=== PATIENT | male | born 1970 | race American Indian/Alaskan Native ===

== ENCOUNTER 2021-01-11 19:54 | Emergency (ER) | payer SELFPAY ==
[2021-01-11 21:21] VITALS: BP 145/78
--- NOTE | 2021-01-11 21:40 | XRay Report ---
CHEST 1 VIEW 01/11/2021 9:33 PM INDICATION / CLINICAL INFORMATION: sob. COMPARISON: None available. FINDINGS: SUPPORT DEVICES: None. HEART / MEDIASTINUM: No significant abnormality. LUNGS / PLEURA: No focal consolidation. Several small nodular densities are seen in bilateral lungs. No pneumothorax. ADDITIONAL FINDINGS: No significant additional findings. IMPRESSION: 1. There is no focal consolidation however there are small nodular densities in bilateral lungs. An a typical infection versus granulomatous disease. Follow-up recommended. Signer Name: Khai Salas MD Signed: 01/11/2021 9:36 PM Workstation Name: [id number]
[2021-01-11] MEDS ORDERED: cefTRIAXone/NS 1 GM/50 ML 1 GM/50 ML BAG IV ONE (22:00)
[2021-01-11] MEDS ORDERED: AZITHROMYCIN/NS 500 MG/250 ML 500 MG/250 ML BAG IV ONE (22:02)
[2021-01-11] MEDS ORDERED: SODIUM CHLORIDE 0.9% 1000 ML 1,000 ML IV ONE (22:02)
[2021-01-11] MEDS ORDERED: LIDOCAINE-MPF (1%) 10 MG/1 ML VIAL 5 ML INFILTRATI ONE (22:02)
--- NOTE | 2021-01-11 22:07 | Emergency Department Report ---
ED General Adult HPI - General Chief complaint: Dyspnea/Respdistress Stated complaint: +COVID/SOB Time Seen by Provider: 01/11/21 21:49 Source: patient Mode of arrival: Ambulatory Limitations: No Limitations - History of Present Illness Initial comments: 51-year-old male patient presents to the emergency department with complaints of chills, vomiting, diarrhea, shortness of breath, and chest pain for 4 days. Patient tested positive for COVID-19 today. Patient estimates he has experienced approximately 6 episodes of nonbloody diarrhea in the last 24 hours. No medications prior to arrival. Denies fever, wheezing, hemoptysis, abdominal pain, syncope, dizziness, palpitations. Denies all other complaints at this time. - Related Data Previous Rx's Medication Instructions Recorded Last Taken Type Azithromycin [Zithromax] 250 mg PO DAILY #5 tablet 01/12/21 Unknown Rx Allergies Allergy/AdvReac Type Severity Reaction Status Date / Time acetaminophen [From Percocet] Allergy Itching Verified 01/11/21 21:21 nut - unspecified Allergy Shortness Verified 01/11/21 21:21 of Breath oxycodone [From Percocet] Allergy Itching Verified 01/11/21 21:21 ED Review of Systems ROS: Stated complaint: +COVID/SOB Other details as noted in HPI Other: GENERAL: Positive for chills. ENT: Negative for ear pain, difficulty hearing, sore throat, nasal congestion, epistaxis. CARDIOVASCULAR: Positive for chest pain. PULMONARY: Positive for cough and shortness of breath. GASTROINTESTINAL: Positive for vomiting and diarrhea. MUSCULOSKELETAL: Negative for joint pain, joint swelling, myalgias, back pain, neck pain. NEUROLOGICAL: Negative for headache, seizure, syncope, paresthesias, weakness. INTEGUMENTARY: Negative for erythema, rash, diaphoresis, laceration, ecchymosis. HEMATOLOGICAL: Negative for hemoptysis, hematemesis, hematochezia, hematuria. PSYCHIATRIC: Negative for hallucinations, suicidal ideation, homicidal ideation, anxiety, depression. ED Past Medical Hx - Past Medical History Previous Medical History?: No - Surgical History Past Surgical History?: Yes Additional Surgical History: foor surgery right foot - Social History Smoking Status: Never Smoker Substance Use Type: None - Medications Home Medications: Home Medications Medication Instructions Recorded Confirmed Last Taken Type Azithromycin [Zithromax] 250 mg PO DAILY #5 tablet 01/12/21 Unknown Rx ED Physical Exam - General Limitations: No Limitations - Other Other exam information: General: Awake and alert. No acute distress. Head: Atraumatic, normocephalic. Eyes: EOMI. Pupils are equal and round. Normal sclera and conjunctiva. ENT: Oral mucosa is moist. Normal pharyngeal exam. Neck: Supple. No lymphadenopathy. Pulmonary: Conversational dyspnea noted however patient is able to speak in complete sentences. Clear to auscultation bilaterally. Cardiac: Tachycardic. Pulses are palpable and equal bilaterally. No lower extremity cyanosis or edema. Skin: Warm and dry. No rashes. Abdomen: Soft, non-tender, non-protuberant. No guarding, rigidity, or rebound. Bowel sounds are normal. No organomegaly or masses noted. Back: Normal alignment. No CVA tenderness. Extremities: Symmetrical. Full range of motion intact. Neurological: Alert and oriented, appropriately interactive, no focal deficits. Psych: Cooperative. Appropriate mood and affect. Speech is evenly metered. Thoughts are logically construed. ED Course Vital Signs 01/11/21 21:14 Temperature 99.5 F Pulse Rate 103 H Respiratory 18 Rate Blood Pressure 145/78 [Left] O2 Sat by Pulse 95 Oximetry ED Medical Decision Making - Lab Data Result diagrams: 01/11/21 22:58 01/11/21 22:58 - Radiology Data [facility] [address] [place] [address] XRay Report Signed Patient: BENJIE ZHU MR#: [id number] 8 : 1970 Acct:[id number] Age/Sex: 51 / M ADM Date: 01/11/21 Loc: ED Attending Dr: Ordering Physician: SANDRA SALGUERO MD Date of Service: 01/11/21 Procedure(s): XR chest 1V ap Accession Number(s): [id number] cc: SANDRA SALGUERO MD Fluoro Time In Minutes: CHEST 1 VIEW 01/11/2021 9:33 PM INDICATION / CLINICAL INFORMATION: sob. COMPARISON: None available. FINDINGS: SUPPORT DEVICES: None. HEART / MEDIASTINUM: No significant abnormality. LUNGS / PLEURA: No focal consolidation. Several small nodular densities are seen in bilateral lungs. No pneumothorax. ADDITIONAL FINDINGS: No significant additional findings. IMPRESSION: 1. There is no focal consolidation however there are small nodular densities in bilateral lungs. An atypical infection versus granulomatous disease. Follow-up recommended. Signer Name: Khai Salas MD Signed: 01/11/2021 9:36 PM Workstation Name: [id number] Transcribed By: ROHIT Dictated By: TRACIE SALAS MD Electronically Authenticated By: TRACIE SALAS MD Signed Date/Time: 01/11/212135 [facility] [address] [place] [address] Cat Scan Report Signed Patient: BENJIE ZHU MR#: [id number] 8 : 1970 Acct:[id number] Age/Sex: 51 / M ADM Date: 01/11/21 Loc: ED Attending Dr: Ordering Physician: JACLYN ORDONEZ Date of Service: 01/11/21 Procedure(s): CT angio chest Accession Number(s): [id number] cc: JACLYN ORDONEZ CTA CHEST WITH CONTRAST INDICATION / CLINICAL INFORMATION: S.O.B. and chest pain x 4 days. Abnormal CXR + COVID. TECHNIQUE: Axial CT images were obtained through the chest after injection of IV contrast. 3 plane MIP and/or 3D reconstructions were produced. All CT scans at this location are performed using CT dose reduction for ALARA by means of automated exposure control. COMPARISON: None available. FINDINGS: PULMONARY ARTERIES: No pulmonary emboli. THORACIC AORTA: No significant abnormality. HEART: No significant abnormality. CORONARY ARTERY CALCIFICATION: None. MEDIASTINUM / MANNY: No significant abnormality. PLEURA: No pleural effusion. No pneumothorax. LUNGS: Bullous disease at the apices right greater than left. No lung infiltrate. ADDITIONAL FINDINGS: None. UPPER ABDOMEN: No acute findings. SKELETAL STRUCTURES: No significant osseous abnormality. IMPRESSION: 1. No CT evidence for pulmonary embolism. 2. Apical bullous disease right greater than left. Signer Name: Hernandez Alberto MD Signed: 01/12/2021 1:48 AM Workstation Name: [id number] Transcribed By: ES Dictated By: Hernandez Alberto MD Electronically Authenticated By: Hernandez Alberto MD Signed Date/Time: 01/12/21147 DD/ 3 TD/TT: DD/ 34 TD/TT: - Medical Decision Making Differential diagnosis including but not limited to: pneumonia, dehydration, pulmonary embolism, pleural effusion, electrolyte abnormality 22:02: Ordered consumer loan underwriter, continuous pulse oximetry, peripheral IV access, IV fluids. 05:37: On reevaluation, patient remains stable. Tachycardia resolved after IV fluids. Repeat heart rate in the 70s. Patient is no longer exhibiting conversational dyspnea. Patient is ambulatory in the emergency department without oxygen desaturation or respiratory distress. Labs consistent with mild dehydration, consistent with reported history of diarrhea. Given IV fluids. Chest x-ray shows small nodular densities in both lungs suggestive of atypical infection versus granulomatous disease. Treated empirically with Rocephin and Azithromycin. Follow-up CT angiogram of the chest shows apical bullous disease, more pronounced on the right. COVID-19 testing is currently unavailable at this facility. No clinical indication for further diagnostic work-up on an emergent basis at this time. Patient will be discharged home with Azithromycin for empiric treatment of questionable atypical pneumonia as well as a referral to pulmonology for close outpatient follow-up. Patient made aware of abnormal radiographic findings. Emphasized the importance of calling dietary assistant's office today to schedule follow-up appointment. Patient has been provided with a copy of his imaging results to take with him to his follow-up appointment. Patient expressed understanding and is agreeable to plan of care. Disease transmission precautions discussed. Strict return precautions provided. Repeat exam is unremarkable and benign. History, exam, diagnostic testing, and current condition do not suggest worrisome pathology to warrant further testing, continued ED treatment, admission, or surgical evaluation at this point. Given the low probability of a significant medical illness, it would be more likely to result in harm than benefit to perform further testing at this stage. Discussed findings, presumptive diagnosis, need for follow-up and specific signs/symptoms that should prompt immediate return to the emergency department. Instructions were explained in detail to the patient in addition to giving written discharge information. Patient expressed understanding and was given the opportunity to ask questions, all of which were satisfactorily answered prior to discharge home. Critical care attestation.: If time is entered above; I have spent that time in minutes in the direct care of this critically ill patient, excluding procedure time. ED Disposition Clinical Impression: COVID-19 determined by clinical diagnostic criteria, Lung nodule, multiple Disposition: 01 HOME / SELF CARE / HOMELESS Is pt being admited?: No Does the pt Need Aspirin: No Condition: Stable Instructions: COVID-19 Additional Instructions: Since you tested positive for COVID-19 at an outside facility, please be sure to adhere to CDC guidelines regarding self-isolation precautions. Take Motrin every 8 hours as needed for pain/fever. Take Azithromycin with food as directed for possible atypical infection of the lungs. Rest. Drink plenty of fluids. Wash hands frequently to prevent disease transmission. Do not share food or drinks with others. Follow-up with your primary care provider this week. Call tomorrow to schedule an appointment. Follow-up with dietary assistant regarding your abnormal chest x-ray/CT results. Call tomorrow to schedule an appointment. Bring a copy of today's results with you to your follow-up appointment. Return to the emergency department immediately for new or worsening symptoms. Specifically, return to the emergency department immediately for fever, chest pain, increased difficulty breathing, dehydration, mental status changes, or any other concerns. Prescriptions: Azithromycin [Zithromax] 250 mg PO DAILY #5 tablet Referrals: SANDEEP SABILLON MD [Staff Physician] - 3-5 Days [facility] [Provider Group] - 3-5 Days SIMRAN PAYAN MD [Staff Physician] - 3-5 Days Time of Disposition: 05:44
[2021-01-11 23:34] LABS: Hematocrit 49.8 % (35.5-45.6); Hemoglobin 17.1 gm/dl (11.8-15.2); Mean Corpuscular HGB Conc 35 % (32-34); Mean Corpuscular Volume 89 fl (84-94); Platelet Count 292 K/mm3 (140-440); Red Blood Count 5.59 M/mm3 (3.65-5.03)
[2021-01-11 23:56] LABS: Alanine Aminotransferase 27 units/L (7-56); Albumin 4.6 g/dL (3.9-5); BUN/Creatinine Ratio 8; Blood Urea Nitrogen 10 mg/dL (9-20); Calcium 9.5 mg/dL (8.4-10.2); Hemolysis Index 9
[2021-01-12 01:53] LABS: RBC Morphology Normal; Total Cells Counted 100
--- NOTE | 2021-01-12 01:53 | Cat Scan Report ---
CTA CHEST WITH CONTRAST INDICATION / CLINICAL INFORMATION: S.O.B. and chest pain x 4 days. Abnormal CXR + COVID. TECHNIQUE: Axial CT images were obtained through the chest after injection of IV contrast. 3 plane AL P and/or 3D reconstructions were produced. All CT scans at this location are performed using CT dose reduction for ALARA by means of automated exposure control. COMPARISON: None available. FINDINGS: PULMONARY ARTERIES: No pulmonary emboli. THORACIC AORTA: No significant abnormality. HEART: No significant abnormality. CORONARY ARTERY CALCIFICATION: None. MEDIASTINUM / MANNY: No significant abnormality. PLEURA: No pleural effusion. No pneumothorax. LUNGS: Bullous disease at the apices right greater than left. No lung infiltrate. ADDITIONAL FINDINGS: None. UPPER ABDOMEN: No acute findings. SKELETAL STRUCTURES: No significant osseous abnormality. IMPRESSION: 1. No CT evidence for pulmonary embolism. 2. Apical bullous disease right greater than left. Signer Name: Hernandez Alberto MD Signed: 01/12/2021 1:48 AM Workstation Name: [id number]
[2021-01-12] MEDS ORDERED: AZITHROMYCIN/NS 500 MG/250 ML 500 MG/250 ML BAG IV ONE (03:00)
[2021-01-12] MEDS ORDERED: LIDOCAINE-MPF (1%) 10 MG/1 ML VIAL 5 ML INFILTRATI ONE (03:00)
[2021-01-12] MEDS ORDERED: cefTRIAXone/NS 1 GM/50 ML 1 GM/50 ML BAG IV ONE (03:00)
[2021-01-12] MEDS ORDERED: SODIUM CHLORIDE 0.9% 1000 ML 1,000 ML IV ONE (03:00)
== END 2021-01-12 06:26 | disposition home or self-care (01) ==
LOC: ED 19:54
DX: U07.1 COVID-19 (principal); R91.8 Other nonspecific abnormal finding of lung field; Z98.890 Other specified postprocedural states; Z91.010 Allergy to peanuts; Z79.899 Other long term (current) drug therapy; Z88.5 Allergy status to narcotic agent; Z88.6 Allergy status to analgesic agent
CPT/HCPCS: 36415; 71045; 71275; 80053; 83735; 85007; 85025; 96365; 96366; 96368; 99284; J0456; J0696; J7030; Q9967; 96367